=== PATIENT | female | born 1935 | race Caucasian/White ===

== ENCOUNTER 2020-11-24 14:17 | Emergency (ER) | payer MEDICARE ==
[~2020-11-24 14:17] MED LIST: ASCORBIC ACID500 MG PO; ASPIRIN325 M1 PO; ATORVASTATIN CA20 MG PO; CENTRUM SILVER1 EAC4 PO; CITRACAL + D E1 EACH PO; CLARITIN10 MG PO; CLOPIDOGREL75 MG PO; CRANBERRY300 MG PO; L-LYSINE500 M1 PO; LISINOPRIL 20MG20 MG PO; LOPRESSOR25 MG PO; LUTEIN20 MG PO; MOBIC7.5 MG PO; NITROSTAT0.4 MG PO; VITAMIN D1000 UNIT PO
[2020-11-24 15:18] LABS: BASOPHIL 0.1 % (0-2); EOSINOPHIL 0.3 % (0-7); HCT 41.7 % (37.0-47.0); HGB 13.8 g/dl (12.5-16.0); LYMPHOCYTE 23.6 % (15-48); MCH 31.8 pg (25.0-31.0); MCHC 33.1 g/dL (32.0-36.0); MCV 96.1 fL (78.0-100.0); MONOCYTE 5.7 % (0-12); MPV 10.2 fL (6.0-9.5); NEUTROPHIL 70.1 % (41-80); NRBC 0; PLT 200 K/uL (150-400); RBC 4.34 M/uL (4.20-5.40); RDW 12.4 % (11.5-14.0); WBC 8.7 K/uL (4.0-10.5)
[2020-11-24 15:21] LABS: INR 1.07 (0.9-1.2); PROTHROMBIN TIME 13.2 SECONDS (11.4-13.6)
[2020-11-24 15:25] LABS: ALBUMIN 3.3 g/dL (3.4-5.0); ALKALINE PHOSHATASE 114 U/L (46-116); ALT 25 U/L (14-59); AST 24 U/L (15-37); BUN 16 mg/dL (7-18); CHLORIDE 107 mmol/L (98-107); CO2 (BICARBONATE) 29 mmol/L (21-32); CREATININE 0.84 mg/dL (0.51-0.95); GLOBULIN (CALCULATION) 2.8 g/dL; GLUCOSE 170 mg/dL (74-106); LIPASE >2250 U/L (73-393); POTASSIUM 4.3 mmol/L (3.5-5.1); TOTAL PROTEIN 6.1 g/dL (6.4-8.2)
== END 2020-11-24 22:35 | disposition other institution (70) ==
LOC: FER 14:17
PROVIDERS: Emergency Medicine
DX: K85.90 Acute pancreatitis without necrosis or infection, unspecified (principal); R79.89 Other specified abnormal findings of blood chemistry; R07.89 Other chest pain; I49.3 Ventricular premature depolarization; Z88.8 Allergy status to other drugs, medicaments and biological substances
CPT/HCPCS: 36415; 71045; 80053; 83690; 84484; 85025; 85610; 93005; Q9967